=== PATIENT | female | born 1985 | race Caucasian/White ===

== ENCOUNTER 2023-04-06 13:30 | Emergency (ER) | payer MEDICAID, SELFPAY ==
[2023-04-06 13:36] VITALS: BP 142/86; PULSE 51; RESP 20; TEMP 36.7; O2SAT 100; BMI 34.5
[2023-04-06 14:39] VITALS: O2SAT 98
--- NOTE | 2023-04-06 14:41 | ED.URI1 ---
Documented by User: FARIBA Colilns 04/06/23 14:49 HPI - URI/Sore Throat General Chief Complaint: Upper Respiratory Infection Stated Complaint: EXPOSED TO SARAHI VIRUS Time Seen by Provider: 04/06/23 13:32 History of Present Illness HPI Narrative: patient is a 37-year-old female presents to the emergency department for viral-type symptoms. 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 She has had no vomiting or diarrhea but reports upper respiratory symptoms of sore throat, nasal congestion, cough. She has had no objective fevers. She is not concerned for . Related Data Home Medications Medication Instructions Recorded Confirmed sertraline 25 mg tablet (Zoloft) 75 mg PO DAILY 04/06/23 04/06/23 Previous Rx's Medication Instructions Recorded dxpbaldpxqkbxgq-dbpnwkyfusdtyks-AH 10 ml PO Q6H PRN cold symptoms 04/06/23 2 mg-30 mg-10 mg/5 mL oral syrup #200 mL (Bromfed DM) ondansetron 4 mg disintegrating 4 mg PO Q6H PRN nausea and 04/06/23 tablet vomiting #12 tabs Allergies Allergy/AdvReac Type Severity Reaction Status Date / Time Sulfa (Sulfonamide Allergy Severe Swelling Verified 04/06/23 13:41 Antibiotics) of Lip/Tongue/Throat Review of Systems ROS Constitutional Reports: chills; Denies: fever Ears, nose, mouth, and throat Reports: throat pain, nasal discharge and nasal congestion Cardiovascular Denies: chest pain Respiratory Reports: cough; Denies: shortness of breath Gastrointestinal Denies: nausea, vomiting or diarrhea Integumentary/Breast Denies: rash Hematologic/Lymphatic Denies: easy bruising PFSH PFS Social History Smoking status: Never smoker Exam Narrative Exam Narrative: Gen.: Awake, alert, in no distress Head: Normocephalic, atraumatic ENT: Moist mucous membranes, bilateral tympanic membranes clear, no pharyngeal erythema with uvula midline, no trismus or drooling. Clear speech. Respiratory: No respiratory distress, lungs clear bilaterally Cardio: Regular rate and rhythm Extremities: Moves extremities equally Psych: Normal mood and affect Neuro: No focal neuro deficit Skin: Warm, dry, intact Constitutional Vital Signs, click to edit/add: Last Vital Signs Temp 98.1 F 04/06/23 13:36 Pulse 61 04/06/23 15:06 Resp 18 04/06/23 15:06 BP 130/80 04/06/23 15:06 Pulse Ox 99 04/06/23 15:06 O2 Del Method Room Air 04/06/23 15:06 Course Vital Signs Vital signs: Vital Signs Temperature 98.1 F 04/06/23 13:36 Pulse Rate 51 L 04/06/23 13:36 Respiratory Rate 20 04/06/23 13:36 Blood Pressure 142/86 H 04/06/23 13:36 Pulse Oximetry 100 04/06/23 13:36 Oxygen Delivery Method Room Air 04/06/23 13:36 Temperature 98.1 F 04/06/23 13:36 Pulse Rate 61 04/06/23 15:06 Respiratory Rate 18 04/06/23 15:06 Blood Pressure 130/80 04/06/23 15:06 Pulse Oximetry 99 04/06/23 15:06 Oxygen Delivery Method Room Air 04/06/23 15:06 MDM - URI/Sore Throat MDM Narrative Medical decision making narrative: patient given education and reassurance that and oral virus should not cause her upper respiratory symptoms, but if she develops diarrhea she should push fluids and this will be a self-limiting illness. She was tested for Covid as her symptoms are much more consistent with Covid infection. We will call with positive results. She is treated with Decadron, Bromfed-DM for home and Zofran as needed. Follow-up with PCP and return to the Emergency Room if symptoms change or worsen Medical Records Attestation: I reviewed the patient's medical records. Discharge Plan Discharge Chief Complaint: Upper Respiratory Infection Clinical Impression: Upper respiratory infection Patient Disposition: Home, Self-Care Time of Disposition Decision: 14:39 Condition: Good Prescriptions / Home Meds: New jmkkxmzfwiuvofz-tyadhcixa-TL [Bromfed DM] 2-30-10 mg/5 mL syrup 10 ml PO Q6H PRN (Reason: cold symptoms) Qty: 200 0RF ondansetron 4 mg tablet,disintegrating 4 mg PO Q6H PRN (Reason: nausea and vomiting) Qty: 12 0RF No Action sertraline [Zoloft] 25 mg tablet 75 mg PO DAILY Instructions: Upper Respiratory Infection (ED) Stand Alone Forms: Portal Instructions Referrals: Physician,Non-Staff, [Primary Care Provider] - 1 week Discharge Date/Time: 04/06/23 15:08 Documented by User: Lula Eldridge MD 04/06/23 15:27 HPI - URI/Sore Throat General Chief Complaint: Upper Respiratory Infection Stated Complaint: EXPOSED TO SARAHI VIRUS Time Seen by Provider: 04/06/23 13:32 Related Data Home Medications Medication Instructions Recorded Confirmed sertraline 25 mg tablet (Zoloft) 75 mg PO DAILY 04/06/23 04/06/23 Previous Rx's Medication Instructions Recorded evdzbpuyskxtbkc-sbvjfnjyioqdfsm-HJ 10 ml PO Q6H PRN cold symptoms 04/06/23 2 mg-30 mg-10 mg/5 mL oral syrup #200 mL (Bromfed DM) ondansetron 4 mg disintegrating 4 mg PO Q6H PRN nausea and 04/06/23 tablet vomiting #12 tabs Allergies Allergy/AdvReac Type Severity Reaction Status Date / Time Sulfa (Sulfonamide Allergy Severe Swelling Verified 04/06/23 13:41 Antibiotics) of Lip/Tongue/Throat PFSH PFSH Social History Smoking status: Never smoker Exam Constitutional Vital Signs, click to edit/add: Last Vital Signs Temp 98.1 F 04/06/23 13:36 Pulse 61 04/06/23 15:06 Resp 18 04/06/23 15:06 BP 130/80 04/06/23 15:06 Pulse Ox 99 04/06/23 15:06 O2 Del Method Room Air 04/06/23 15:06 Course Vital Signs Vital signs: Vital Signs Temperature 98.1 F 04/06/23 13:36 Pulse Rate 51 L 04/06/23 13:36 Respiratory Rate 20 04/06/23 13:36 Blood Pressure 142/86 H 04/06/23 13:36 Pulse Oximetry 100 04/06/23 13:36 Oxygen Delivery Method Room Air 04/06/23 13:36 Temperature 98.1 F 04/06/23 13:36 Pulse Rate 61 04/06/23 15:06 Respiratory Rate 18 04/06/23 15:06 Blood Pressure 130/80 04/06/23 15:06 Pulse Oximetry 99 04/06/23 15:06 Oxygen Delivery Method Room Air 04/06/23 15:06 MDM - URI/Sore Throat MDM Narrative Medical decision making narrative: patient given education and reassurance that and oral virus should not cause her upper respiratory symptoms, but if she develops diarrhea she should push fluids and this will be a self-limiting illness. She was tested for Covid as her symptoms are much more consistent with Covid infection. We will call with positive results. She is treated with Decadron, Bromfed-DM for home and Zofran as needed. Follow-up with PCP and return to the Emergency Room if symptoms change or worsen Attending physician attestation I have reviewed the mid-level documentation, agree with the documentation, medical decision making and treatment plan as outlined by the mid-level provider. Discharge Plan Discharge Chief Complaint: Upper Respiratory Infection Clinical Impression: Upper respiratory infection Patient Disposition: Home, Self-Care Time of Disposition Decision: 14:39 Condition: Good Prescriptions / Home Meds: New bahwzeqxllynamb-aybsyxwxp-KP [Bromfed DM] 2-30-10 mg/5 mL syrup 10 ml PO Q6H PRN (Reason: cold symptoms) Qty: 200 0RF ondansetron 4 mg tablet,disintegrating 4 mg PO Q6H PRN (Reason: nausea and vomiting) Qty: 12 0RF No Action sertraline [Zoloft] 25 mg tablet 75 mg PO DAILY Instructions: Upper Respiratory Infection (ED) Stand Alone Forms: Portal Instructions Referrals: Physician,Non-Staff, MD [Primary Care Provider] - 1 week Discharge Date/Time: 04/06/23 15:08
[2023-04-06] MEDS: DEXAMETHASONE SODIUM PHOSPHATE 10 MG/ML VIAL PO (14:54)
[2023-04-06 15:06] VITALS: BP 130/80; PULSE 61; RESP 18; O2SAT 99
[2023-04-06 15:50] LABS: SARS-CoV-2 Ag NEGATIVE (NEGATIVE)
[2023-04-06 19:04] LABS: SARS-CoV-2 NAA NOT DETECTED (NOT DETECTE)
== END 2023-04-06 15:08 | disposition home or self-care (01) ==
PROVIDERS: Physician Assistant; Emergency Provider Emergency Medicine
DX: J06.9 Acute upper respiratory infection, unspecified (principal); Z20.822 Contact with and (suspected) exposure to COVID-19; Z79.899 Other long term (current) drug therapy
CPT/HCPCS: 87635; 87811; 99283; J1100; U0003

== ENCOUNTER 2023-06-12 14:48 | Emergency (ER) | payer SELFPAY ==
[2023-06-12] VITALS (17 sets, daily range): BP systolic 118–129; BP diastolic 58–91; PULSE 37–56; RESP 12–17; TEMP 36.7; O2SAT 97–100; BMI 32.4
--- NOTE | 2023-06-12 15:10 | ECG_ITS ---
The [facility] Test Date: 2023-06-12 Pat Name: PATRIA MAIN Department: Room: - Gender: Female Cash Person: : 1985 Requested By: [id number] Order Number: [id number] Reading MD: LEBRON CARDENAS Measurements Intervals [place] Rate: 42 P: 57 RI: 140 QRS: 48 QRSD: 98 T: 30 QT: 452 QTc: 395 Interpretive Statements 1130 Sinus bradycardia 9140 abnormal rhythm ECG No previous ECG available for comparison Electronically Signed On 06-13-2023 7:11:08 EST by LEBRON CARDENAS
--- NOTE | 2023-06-12 15:24 | CT_ITS ---
The [address] [address] Patient Name: PATRIA MAIN MRN: [id number] date: 1985 Sex: F Assigned Patient Location: ER Current Patient Location: ER Accession/Order Number: [id number] Exam Date: 06/12/2023 16:06 Report Date: 06/12/2023 16:49 At the request of: DARIELA TATE Procedure: CT cervical spine wo con CT cervical spine wo con, CT head/brain wo con, CT facial bones wo con, 06/12/2023 4:06 PM EST INDICATION: syncope COMPARISON: There is no appropriate prior study for comparison. TECHNIQUE: Axial images of 3 mm are obtained from the base of the skull to vertex completed with Axial images of 2 mm are obtained from base of skull to T2 without contrast. Dose reduction techniques were achieved by using automated exposure control and/or adjustment of mA and/or kV according to patient size and/or use of iterative reconstruction technique. FINDINGS: The cerebral and cerebellar sulci as well as ventricular system are appropriate for age. There is no intracranial mass, mass effect, midline shift, intra or extra-axial fluid collection. No acute territorial infarction or hemorrhage is noted. There is mucosal thickening within the maxillary sinuses and ethmoid cells. The visualized portions of orbits, mastoid air cells as well as remainder of paranasal sinuses are unremarkable. There is no suspicious osteolytic or osteoblastic lesion. No acute fracture or dislocation is noted. Multilevel degenerative changes of cervical spine in particular at the level of C5-C6 are noted. Mild reactive cervical lymph nodes are noted. CT/CT cervical spine wo con IMPRESSION: No acute intracranial process is identified. No acute fracture. Electronically authenticated by: DORON HUMPHREYS Date: 06/12/2023 16:49
--- NOTE | 2023-06-12 15:24 | CT_ITS ---
The [address] [address] Patient Name: PATRIA MAIN MRN: [id number] date: 1985 Sex: F Assigned Patient Location: ER Current Patient Location: ER Accession/Order Number: [id number] Exam Date: 06/12/2023 16:06 Report Date: 06/12/2023 16:49 At the request of: DARIELA TATE Procedure: CT head/brain wo con CT cervical spine wo con, CT head/brain wo con, CT facial bones wo con, 06/12/2023 4:06 PM EST INDICATION: syncope COMPARISON: There is no appropriate prior study for comparison. TECHNIQUE: Axial images of 3 mm are obtained from the base of the skull to vertex completed with Axial images of 2 mm are obtained from base of skull to T2 without contrast. Dose reduction techniques were achieved by using automated exposure control and/or adjustment of mA and/or kV according to patient size and/or use of iterative reconstruction technique. FINDINGS: The cerebral and cerebellar sulci as well as ventricular system are appropriate for age. There is no intracranial mass, mass effect, midline shift, intra or extra-axial fluid collection. No acute territorial infarction or hemorrhage is noted. There is mucosal thickening within the maxillary sinuses and ethmoid cells. The visualized portions of orbits, mastoid air cells as well as remainder of paranasal sinuses are unremarkable. There is no suspicious osteolytic or osteoblastic lesion. No acute fracture or dislocation is noted. Multilevel degenerative changes of cervical spine in particular at the level of C5-C6 are noted. Mild reactive cervical lymph nodes are noted. CT/CT head/brain wo con IMPRESSION: No acute intracranial process is identified. No acute fracture. Electronically authenticated by: DORON HUMPHREYS Date: 06/12/2023 16:49
--- NOTE | 2023-06-12 15:24 | CT_ITS ---
The [address] [address] Patient Name: PATRIA MAIN MRN: [id number] date: 1985 Sex: F Assigned Patient Location: ER Current Patient Location: ER Accession/Order Number: [id number] Exam Date: 06/12/2023 16:06 Report Date: 06/12/2023 16:49 At the request of: DARIELA TATE Procedure: CT facial bones wo con CT cervical spine wo con, CT head/brain wo con, CT facial bones wo con, 06/12/2023 4:06 PM EST INDICATION: syncope COMPARISON: There is no appropriate prior study for comparison. TECHNIQUE: Axial images of 3 mm are obtained from the base of the skull to vertex completed with Axial images of 2 mm are obtained from base of skull to T2 without contrast. Dose reduction techniques were achieved by using automated exposure control and/or adjustment of mA and/or kV according to patient size and/or use of iterative reconstruction technique. FINDINGS: The cerebral and cerebellar sulci as well as ventricular system are appropriate for age. There is no intracranial mass, mass effect, midline shift, intra or extra-axial fluid collection. No acute territorial infarction or hemorrhage is noted. There is mucosal thickening within the maxillary sinuses and ethmoid cells. The visualized portions of orbits, mastoid air cells as well as remainder of paranasal sinuses are unremarkable. There is no suspicious osteolytic or osteoblastic lesion. No acute fracture or dislocation is noted. Multilevel degenerative changes of cervical spine in particular at the level of C5-C6 are noted. Mild reactive cervical lymph nodes are noted. CT/CT facial bones wo con IMPRESSION: No acute intracranial process is identified. No acute fracture. Electronically authenticated by: DORON HUMPHREYS Date: 06/12/2023 16:49
--- NOTE | 2023-06-12 15:24 | XR_ITS ---
The [address] [address] Patient Name: PATRIA MAIN MRN: [id number] date: 1985 Sex: F Assigned Patient Location: ER Current Patient Location: ER Accession/Order Number: [id number] Exam Date: 06/12/2023 16:08 Report Date: 06/12/2023 16:43 At the request of: DARIELA TATE Procedure: XR chest 1V EXAM: XR chest 1V TECHNIQUE: Single AP view chest HISTORY: syncope COMPARISON: None. FINDINGS: The heart and mediastinum are unremarkable. The lung ruggiero are clear of any acute infiltrate, effusion or mass. No acute bony abnormality. XR/XR chest 1V IMPRESSION: No acute pulmonary disease. Electronically authenticated by: BHAVIK MARTINEZ Date: 06/12/2023 16:43
--- NOTE | 2023-06-12 15:25 | ED.GENADUL1 ---
HPI - General Adult General Chief complaint: Eye Problems Stated complaint: GENERAL WEAKNESS Time Seen by Provider: 06/12/23 14:49 Source: patient Mode of arrival: walk-in Limitations: no limitations History of Present Illness HPI narrative: patient is a 38-year-old female who presents to the emergency department for syncopal episode that occurred approximately thirty-six hours ago. Patient states she was standing in the kitchen talking to her boyfriend's mother and trying to text him when she felt lightheaded and passed out falling forward. She was only unconscious for several seconds. She states she is lightheaded and dizzy on standing since that time, but has no other major medical complaints. She states she has a right-sided headache that is worsened by light. She has had no fevers, chills, chest pain, shortness of breath. She denies visual changes, peripheral paresthesia. She states the headache goes to the right side of the face and into the right side of the neck. she has had a previous hysterectomy. No recent surgeries or procedures. No recent illness. patient is noted to be bradycardic at time of initial interview, her previous visit to the emergency department two months ago shows a heart rate of 51. Related Data Home Medications Medication Instructions Recorded Confirmed sertraline 25 mg tablet (Zoloft) 75 mg PO DAILY 04/06/23 04/06/23 Previous Rx's Medication Instructions Recorded iwravrzshzkxqnk-qhbtbfgyyxkosen-WL 10 ml PO Q6H PRN cold symptoms 04/06/23 2 mg-30 mg-10 mg/5 mL oral syrup #200 mL (Bromfed DM) ondansetron 4 mg disintegrating 4 mg PO Q6H PRN nausea and 04/06/23 tablet vomiting #12 tabs rkrcyoczei-akyekewcglpfm-pddvwghc 1 cap PO Q6H PRN headache #12 caps 06/12/23 50 mg-300 mg-40 mg capsule (Fioricet) Allergies Allergy/AdvReac Type Severity Reaction Status Date / Time Sulfa (Sulfonamide Allergy Severe Swelling Verified 06/12/23 15:03 Antibiotics) of Lip/Tongue/Throat Review of Systems ROS Constitutional Denies: fever or chills Eyes Denies: change in vision Ears, nose, mouth, and throat Denies: throat pain or nasal congestion Cardiovascular Denies: chest pain Respiratory Denies: shortness of breath or cough Gastrointestinal Denies: nausea, vomiting, diarrhea or constipation Genitourinary Denies: painful urination Musculoskeletal Reports: neck pain; Denies: back pain Integumentary/Breast Denies: rash Neurological Denies: headache PFSH [facility] Social History Smoking status: Never smoker Exam Narrative Exam Narrative: Gen.: Awake, alert, in no distress Head: Normocephalic, atraumatic; no hemotympanums or helm sign/raccoon eyes ENT: Moist mucous membranes; no dental injury or septal hematoma Neck: no bony point tenderness of the posterior cervical spine Respiratory: No respiratory distress, lungs clear bilaterally Cardio: Regular rate and rhythm Gastrointestinal: Abdomen is soft, nondistended and nontender to palpation Extremities: Moves extremities equally, no injuries noted Psych: Normal mood and affect Neuro: No focal neuro deficit Skin: Warm, dry, intact Constitutional Vital Signs, click to edit/add: Last Vital Signs Temp 98.1 F 06/12/23 15:03 Pulse 37 L 06/12/23 17:00 Resp 14 06/12/23 17:00 BP 121/73 06/12/23 16:46 Pulse Ox 97 06/12/23 16:00 O2 Del Method Room Air 06/12/23 15:03 Course Vital Signs Vital signs: Vital Signs Temperature 98.1 F 06/12/23 15:03 Pulse Rate 44 L 06/12/23 15:03 Respiratory Rate 16 06/12/23 15:03 Blood Pressure 118/58 06/12/23 15:03 Pulse Oximetry 98 06/12/23 15:03 Oxygen Delivery Method Room Air 06/12/23 15:03 Temperature 98.1 F 06/12/23 15:03 Pulse Rate 37 L 06/12/23 17:00 Respiratory Rate 14 06/12/23 17:00 Blood Pressure 121/73 06/12/23 16:46 Pulse Oximetry 97 06/12/23 16:00 Oxygen Delivery Method Room Air 06/12/23 15:03 Medical Decision Making MDM Narrative Medical decision making narrative: CT of the head, facial bones and cervical spine are unremarkable, chest x-rays unremarkable. Patient was noted to have stable lab studies and troponin. EKG shows sinus bradycardia. 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 She states she typically runs a heart rate in the 40s. She has had no significant dizziness in the Emergency Room, she is able to ambulate, she was treated with IV fluids and Fioricet for headache. I discussed the case with Dr. Jimenez for cardiology at [facility], no indication for emergent cardiology evaluation at this time but the patient can be discharged to follow-up with cardiology. Patient will be discharged home with Fioricet as needed for headache, follow-up with cardiology and return to the Emergency Room if symptoms change or worsen. She has no PE risk factors. She has a stable blood pressure at time of discharge. Medical Records Medical records reviewed: Yes I reviewed the patient's medical records Lab Data Lab results reviewed: Yes I reviewed the patient's lab results Labs: Lab Results 06/12/23 06/12/23 Range/Units 15:27 15:32 WBC 7.8 (4.0-11.0) 10^3/uL RBC 4.15 L (4.20-5.40) 10^6/uL Hgb 12.3 (12.0-16.0) g/dL Hct 38.9 (36.0-48.0) % MCV 93.7 (81.0-99.0) fL MCH 29.6 (26.7-34.0) pg MCHC 31.6 (29.9-35.2) g/dL RDW 12.4 (11.0-15.0) % Plt Count 282 (150-450) 10^3/uL MPV 10.9 (9.5-13.5) fL Neut % (Auto) 40.2 L (43.0-75.0) % Lymph % (Auto) 40.7 (20.5-60.0) % [place] % (Auto) 8.4 (1.7-12.0) % Eos % (Auto) 9.5 H (0.9-7.0) % Baso % (Auto) 0.9 (0.2-2.0) % Neut # (Auto) 3.1 (1.4-6.5) 10^3/uL Lymph # (Auto) 3.2 (1.2-3.8) 10^3/uL [place] # (Auto) 0.7 (0.3-0.8) 10^3/uL Eos # (Auto) 0.7 (0.0-0.7) 10^3/uL Baso # (Auto) 0.1 (0.0-0.1) 10^3/uL Abs Immat Gran (auto) 0.02 (0.00-0.03) 10^3/uL Imm/Tot Granulo (auto) 0.3 (0.0-0.5) % Sodium 143 (136-145) mmol/L Potassium 3.7 (3.5-5.1) mmol/L Chloride 106 (98-107) mmol/L Carbon Dioxide 28.9 (21.0-32.0) mmol/L Anion Gap 11.8 BUN 11.0 (7.0-18.0) mg/dL Creatinine 0.63 (0.55-1.02) mg/dL Est GFR ( Amer) >60 (>=60) Est GFR (Non-Af Amer) >60 (>=60) BUN/Creatinine Ratio 17.5 Glucose 77 (74-106) mg/dL Calcium 8.7 (8.5-10.1) mg/dL Total Bilirubin 0.3 (0.2-1.0) mg/dL AST 14 L (15-37) U/L ALT 25 (14-59) U/L Alkaline Phosphatase 73 (46-116) U/L Troponin I High Sens 5.2 (4.0-51.3) pg/mL Total Protein 7.0 (6.4-8.2) g/dL Albumin 3.7 (3.4-5.0) g/dL Globulin 3.3 g/dL Albumin/Globulin Ratio 1.1 TSH 0.965 (0.358-3.740) uIU/mL Urine Color Yellow (YELLOW) Urine Clarity Clear (CLEAR) Urine pH 5.5 (5.0-9.0) Ur Specific [place] >=1.030 A (1.005-1.025) Urine Protein Negative (NEG/TRACE) mg/dL Urine Glucose (UA) Negative (NEGATIVE) mg/dL Urine Ketones Negative (NEGATIVE) mg/dL Urine Occult Blood Negative (NEGATIVE) Urine Nitrite Negative (NEGATIVE) Urine Bilirubin Small A (NEGATIVE) Urine Urobilinogen 0.2 (0.2-1.0) EU/dL Ur Leukocyte Esterase Negative (NEGATIVE) ECG Data Attestation: I personally reviewed and interpreted this ECG as follows: (sinus bradycardia at a rate of 42, no acute ST elevation, no ectopy. EKG reviewed by attending physician) Discharge Plan Discharge Chief Complaint: Eye Problems Clinical Impression: Bradycardia, Syncope Patient Disposition: Home, Self-Care Time of Disposition Decision: 17:09 Condition: Good Prescriptions / Home Meds: New iidmzgchyn-rujkvxtnvqudk-trsn [Fioricet] 50-300-40 mg capsule 1 cap PO Q6H PRN (Reason: headache) Qty: 12 0RF No Action sertraline [Zoloft] 25 mg tablet 75 mg PO DAILY wqqubytdmnmrrlw-vftfxwbeq-XI [Bromfed DM] 2-30-10 mg/5 mL syrup 10 ml PO Q6H PRN (Reason: cold symptoms) Qty: 200 0RF ondansetron 4 mg tablet,disintegrating 4 mg PO Q6H PRN (Reason: nausea and vomiting) Qty: 12 0RF Instructions: Syncope (ED), Bradycardia (ED) Stand Alone Forms: Portal Instructions Referrals: Prabhakar Dinero MD [Physician] - 1 week Physician,Non-StaffMD [Primary Care Provider] - 1 week
[2023-06-12] MEDS: 0.9 % SODIUM CHLORIDE 1,000 ML 1000 ML IV (15:38)
[2023-06-12 15:41] LABS: Basophils Absolute Auto 0.1 10^3/uL (0.0-0.1); Basophils Percent Auto 0.9 % (0.2-2.0); Eosinophils Absolute Auto 0.7 10^3/uL (0.0-0.7); Eosinophils Percent Auto 9.5 % (0.9-7.0); Hematocrit 38.9 % (36.0-48.0); Hemoglobin 12.3 g/dL (12.0-16.0); Immature Granulocytes Abs Auto 0.02 10^3/uL (0.00-0.03); Immature Granulocytes Pct Auto 0.3 % (0.0-0.5); Lymphocytes Absolute Auto 3.2 10^3/uL (1.2-3.8); Lymphocytes Percent Auto 40.7 % (20.5-60.0); Mean Corpuscular HGB Conc 31.6 g/dL (29.9-35.2); Mean Corpuscular Hemoglobin 29.6 pg (26.7-34.0); Mean Corpuscular Volume 93.7 fL (81.0-99.0); Mean Platelet Volume 10.9 fL (9.5-13.5); Monocytes Absolute Auto 0.7 10^3/uL (0.3-0.8); Monocytes Percent Auto 8.4 % (1.7-12.0); Neutrophils Absolute Auto 3.1 10^3/uL (1.4-6.5); Neutrophils Percent Auto 40.2 % (43.0-75.0); Platelet Count 282 10^3/uL (150-450); Red Blood Count 4.15 10^6/uL (4.20-5.40); Red Cell Distribution Width 12.4 % (11.0-15.0); White Blood Count 7.8 10^3/uL (4.0-11.0)
[2023-06-12 15:47] LABS: Bilirubin Urine SMALL (NEGATIVE); Blood Urine NEGATIVE (NEGATIVE); Clarity Urine CLEAR (CLEAR); Color Urine YELLOW (YELLOW); Glucose Urine UA NEGATIVE (NEGATIVE); Ketones Urine NEGATIVE (NEGATIVE); Leukocyte Esterase Urine NEGATIVE (NEGATIVE); Nitrite Urine NEGATIVE (NEGATIVE); Protein Urine NEGATIVE (NEG/TRACE); Specific Gravity Urine >=1.030 (1.005-1.025); Urobilinogen Urine 0.2 EU/dL (0.2-1.0); pH Urine 5.5 (5.0-9.0)
[2023-06-12 15:48] LABS: Urine Microscopic Indicated NO
[2023-06-12 15:54] LABS: Alanine Aminotransferase 25 U/L (14-59); Albumin Globulin Ratio 1.1; Albumin Level 3.7 g/dL (3.4-5.0); Alkaline Phosphatase 73 U/L (46-116); Anion Gap 11.8; Aspartate Amino Transferase 14 U/L (15-37); BUN Creatinine Ratio 17.5; Bilirubin Total 0.3 mg/dL (0.2-1.0); Calcium 8.7 mg/dL (8.5-10.1); Carbon Dioxide 28.9 mmol/L (21.0-32.0); Chloride 106 mmol/L (98-107); Estimated GFR (African America >60 (>=60); Estimated GFR (Non-African Ame >60 (>=60); Globulin 3.3 g/dL; Glucose 77 mg/dL (74-106); Potassium 3.7 mmol/L (3.5-5.1); Sodium 143 mmol/L (136-145)
[2023-06-12 16:04] LABS: Thyroid Stimulating Hormone 0.965 uIU/mL (0.358-3.740); Troponin I High Sensitivity 5.2 pg/mL (4.0-51.3)
[2023-06-12] MEDS: BUTALB/ACETAMINOPHEN/CAFFEINE 50-325-40MG TABLET 1 TAB PO (16:37)
== END 2023-06-12 17:20 | disposition home or self-care (01) ==
PROVIDERS: Physician Assistant; Emergency Provider Emergency Medicine
DX: R55 Syncope and collapse (principal); R00.1 Bradycardia, unspecified; Z90.710 Acquired absence of both cervix and uterus; Z79.899 Other long term (current) drug therapy
CPT/HCPCS: 36415; 70450; 70486; 71045; 72125; 80053; 81003; 84443; 84484; 85025; 93005; 96360; 99285

== ENCOUNTER 2023-06-17 15:52 | Emergency (ER) | payer SELFPAY ==
[2023-06-17] VITALS (17 sets, daily range): BP systolic 104–131; BP diastolic 60–73; PULSE 42–66; RESP 10–29; TEMP 36.8; O2SAT 92–100; BMI 31.7
--- NOTE | 2023-06-17 16:12 | ECG_ITS ---
The [facility] Test Date: 2023-06-17 Pat Name: PATRIA MAIN Department: Room: - Gender: Female Duct Cleaner: : 1985 Requested By: Order Number: [id number] Reading MD: LARA HERNANDEZ Measurements Intervals [place] Rate: 48 P: 60 NM: 150 QRS: 50 QRSD: 98 T: 21 QT: 428 QTc: 393 Interpretive Statements 1130 Sinus bradycardia 9140 abnormal rhythm ECG Compared to ECG 06/12/2023 15:12:09 No significant changes Electronically Signed On 06-19-2023 5:40:42 EST by LARA HERNANDEZ
--- NOTE | 2023-06-17 16:13 | XR_ITS ---
[address] [address] Patient Name: PATRIA MAIN MRN: [id number] date: 1985 Sex: F Assigned Patient Location: ER Current Patient Location: ER Accession/Order Number: [id number] Exam Date: 06/17/2023 16:20 Report Date: 06/17/2023 16:39 At the request of: BRYANT SAXENA Procedure: XR chest 1V EXAMINATION: XR chest 1V HISTORY: Chest pain COMPARISON: Portable chest 06/12/2023 TECHNIQUE: Portable chest FINDINGS: The lung parenchyma is free of consolidation or infiltrate. No pneumothorax or pleural effusion. The cardiac, mediastinal and hilar contours are normal. The visualized osseous structures exhibit no gross abnormality. XR/XR chest 1V IMPRESSION: Normal chest x-ray Electronically authenticated by: PAMELLA DINH Date: 06/17/2023 16:39
--- NOTE | 2023-06-17 16:15 | ED.DIZZY1 ---
HPI - Dizziness General Chief Complaint: Dizziness Stated Complaint: Dizzness Time Seen by Provider: 06/17/23 16:01 Source: patient Mode of arrival: walk-in Limitations: no limitations History of Present Illness HPI Narrative: 38-year-old female presents for dizziness and chest pain. She was at work today and became dizzy and felt like she was going to pass out. She felt hot. The nurse told her that she should come here and get looked at. She has a history of chronic bradycardia and has seen cardiologists for it in the past. She did not pass out today. No feveer or vomiting. Related Data Home Medications Medication Instructions Recorded Confirmed sertraline 25 mg tablet (Zoloft) 75 mg PO DAILY 04/06/23 04/06/23 Previous Rx's Medication Instructions Recorded nhokjbbhhqetqsp-rhiftxdtdrclrik-ZR 10 ml PO Q6H PRN cold symptoms 04/06/23 2 mg-30 mg-10 mg/5 mL oral syrup #200 mL (Bromfed DM) ondansetron 4 mg disintegrating 4 mg PO Q6H PRN nausea and 04/06/23 tablet vomiting #12 tabs wzpjcztwvb-yphonlfirangl-rzpmwelo 1 cap PO Q6H PRN headache #12 caps 06/12/23 50 mg-300 mg-40 mg capsule (Fioricet) lorazepam 1 mg tablet (Ativan) 1 mg PO Q8H PRN anxiety 4 days #12 06/17/23 tabs Allergies Allergy/AdvReac Type Severity Reaction Status Date / Time Sulfa (Sulfonamide Allergy Severe Swelling Verified 06/12/23 15:03 Antibiotics) of Lip/Tongue/Throat Review of Systems ROS Narrative A ten point review of systems is negative except as noted above. PFSH PFSH Social History Smoking status: Never smoker Exam Narrative Exam Narrative: Nurses note and vital signs reviewed and patient is not hypoxic. General: The patient appears well and in no apparent distress. Patient is resting comfortably on cart. Skin: Warm, dry, no pallor noted. There is no rash noted. Head: Normocephalic, atraumatic Eye: Normal conjunctiva, no drainage Ears, Nose, Mouth, and Throat: oral mucosa is moist. Nares patent. Cardiovascular: Regular Rate and Rhythm Respiratory: Patient is in no distress, no accessory muscle use, lungs are clear to auscultation, no wheezing, rales or rhonchi Back: non-tender GI: soft and nontender Musculoskeletal: The patient has no evidence of calf tenderness, no pitting edema, symmetrical pulses noted bilaterally Neurological: A&O, normal speech Psychiatric: Cooperative Constitutional Vital Signs, click to edit/add: Last Vital Signs Temp 98.3 F 06/17/23 15:55 Pulse 46 L 06/17/23 17:00 Resp 14 06/17/23 17:00 BP 117/71 06/17/23 17:00 Pulse Ox 99 06/17/23 17:00 O2 Del Method Room Air 06/17/23 15:55 Course Vital Signs Vital signs: Vital Signs Temperature 98.3 F 06/17/23 15:55 Pulse Rate 59 L 06/17/23 15:55 Respiratory Rate 18 06/17/23 15:55 Blood Pressure 131/73 06/17/23 15:55 Pulse Oximetry 99 06/17/23 15:55 Oxygen Delivery Method Room Air 06/17/23 15:55 Temperature 98.3 F 06/17/23 15:55 Pulse Rate 46 L 06/17/23 17:00 Respiratory Rate 14 06/17/23 17:00 Blood Pressure 117/71 06/17/23 17:00 Pulse Oximetry 99 06/17/23 17:00 Oxygen Delivery Method Room Air 06/17/23 15:55 MDM - Dizziness MDM Narrative Medical decision making narrative: workup is negative and she feels improved after being given IV Ativan. She is given a prescription for by mouth Ativan for home and she'll follow-up with her doctor. Treatment diagnosis and follow-up were discussed with the patient. Differential Diagnosis Differential diagnosis: Likely other (hypovolemia, bradycardia, acute kidney injury, anemia, electrolyte imbalance) Lab Data Attestation: I reviewed the patient's lab results. Labs: Lab Results 06/17/23 Range/Units 16:20 WBC 8.5 (4.0-11.0) 10^3/uL RBC 4.21 (4.20-5.40) 10^6/uL Hgb 12.5 (12.0-16.0) g/dL Hct 38.7 (36.0-48.0) % MCV 91.9 (81.0-99.0) fL MCH 29.7 (26.7-34.0) pg MCHC 32.3 (29.9-35.2) g/dL RDW 12.2 (11.0-15.0) % Plt Count 234 (150-450) 10^3/uL MPV 11.1 (9.5-13.5) fL Neut % (Auto) 61.8 (43.0-75.0) % Lymph % (Auto) 24.2 (20.5-60.0) % [place] % (Auto) 7.6 (1.7-12.0) % Eos % (Auto) 5.6 (0.9-7.0) % Baso % (Auto) 0.6 (0.2-2.0) % Neut # (Auto) 5.3 (1.4-6.5) 10^3/uL Lymph # (Auto) 2.1 (1.2-3.8) 10^3/uL [place] # (Auto) 0.7 (0.3-0.8) 10^3/uL Eos # (Auto) 0.5 (0.0-0.7) 10^3/uL Baso # (Auto) 0.1 (0.0-0.1) 10^3/uL Abs Immat Gran (auto) 0.02 (0.00-0.03) 10^3/uL Imm/Tot Granulo (auto) 0.2 (0.0-0.5) % Sodium 142 (136-145) mmol/L Potassium 3.8 (3.5-5.1) mmol/L Chloride 107 (98-107) mmol/L Carbon Dioxide 29.5 (21.0-32.0) mmol/L Anion Gap 9.3 BUN 11.0 (7.0-18.0) mg/dL Creatinine 0.68 (0.55-1.02) mg/dL Est GFR ( Amer) >60 (>=60) Est GFR (Non-Af Amer) >60 (>=60) BUN/Creatinine Ratio 16.2 Glucose 95 (74-106) mg/dL Calcium 8.6 (8.5-10.1) mg/dL Troponin I High Sens 5.4 (4.0-51.3) pg/mL ECG Data Attestation: I personally reviewed and interpreted this ECG as follows: (EKG on my interpretation shows sinus rhythm with a rate of 48.) Discharge Plan Discharge Chief Complaint: Dizziness Clinical Impression: Dizziness Patient Disposition: Home, Self-Care Time of Disposition Decision: 17:57 Condition: Good Prescriptions / Home Meds: New lorazepam [Ativan] 1 mg tablet 1 mg PO Q8H PRN (Reason: anxiety) 4 Days Qty: 12 0RF No Action sertraline [Zoloft] 25 mg tablet 75 mg PO DAILY kvzqyonniququrg-vcszyofcn-[place] [Bromfed DM] 2-30-10 mg/5 mL syrup 10 ml PO Q6H PRN (Reason: cold symptoms) Qty: 200 0RF ondansetron 4 mg tablet,disintegrating 4 mg PO Q6H PRN (Reason: nausea and vomiting) Qty: 12 0RF lybhsqfvkx-qvikzmgkwnbcv-tsen [Fioricet] 50-300-40 mg capsule 1 cap PO Q6H PRN (Reason: headache) Qty: 12 0RF Instructions: Dizziness (ED) Stand Alone Forms: Portal Instructions Referrals: Physician,Non-Staff, MD [Primary Care Provider] - 1 week
[2023-06-17] MEDS: 0.9 % SODIUM CHLORIDE 1,000 ML 1000 ML IV (16:21)
[2023-06-17 16:24] LABS: Basophils Absolute Auto 0.1 10^3/uL (0.0-0.1); Basophils Percent Auto 0.6 % (0.2-2.0); Eosinophils Absolute Auto 0.5 10^3/uL (0.0-0.7); Eosinophils Percent Auto 5.6 % (0.9-7.0); Hematocrit 38.7 % (36.0-48.0); Hemoglobin 12.5 g/dL (12.0-16.0); Immature Granulocytes Abs Auto 0.02 10^3/uL (0.00-0.03); Immature Granulocytes Pct Auto 0.2 % (0.0-0.5); Lymphocytes Absolute Auto 2.1 10^3/uL (1.2-3.8); Lymphocytes Percent Auto 24.2 % (20.5-60.0); Mean Corpuscular HGB Conc 32.3 g/dL (29.9-35.2); Mean Corpuscular Hemoglobin 29.7 pg (26.7-34.0); Mean Corpuscular Volume 91.9 fL (81.0-99.0); Mean Platelet Volume 11.1 fL (9.5-13.5); Monocytes Absolute Auto 0.7 10^3/uL (0.3-0.8); Monocytes Percent Auto 7.6 % (1.7-12.0); Neutrophils Absolute Auto 5.3 10^3/uL (1.4-6.5); Neutrophils Percent Auto 61.8 % (43.0-75.0); Platelet Count 234 10^3/uL (150-450); Red Blood Count 4.21 10^6/uL (4.20-5.40); Red Cell Distribution Width 12.2 % (11.0-15.0); White Blood Count 8.5 10^3/uL (4.0-11.0)
[2023-06-17 16:32] LABS: Anion Gap 9.3; BUN Creatinine Ratio 16.2; Calcium 8.6 mg/dL (8.5-10.1); Carbon Dioxide 29.5 mmol/L (21.0-32.0); Chloride 107 mmol/L (98-107); Estimated GFR (African America >60 (>=60); Estimated GFR (Non-African Ame >60 (>=60); Glucose 95 mg/dL (74-106); Potassium 3.8 mmol/L (3.5-5.1); Sodium 142 mmol/L (136-145)
[2023-06-17 16:42] LABS: Troponin I High Sensitivity 5.4 pg/mL (4.0-51.3)
[2023-06-17] MEDS: LORAZEPAM 2 MG/ML 1 ML VIAL 1 MG IV (17:20)
== END 2023-06-17 18:06 | disposition home or self-care (01) ==
PROVIDERS: Emergency Provider Emergency Medicine
DX: R42 Dizziness and giddiness (principal); Z79.899 Other long term (current) drug therapy
CPT/HCPCS: 36415; 71045; 80048; 84484; 85025; 93005; 96361; 96374; 99285